=== PATIENT | male | born 1980 | race Caucasian/White ===

== ENCOUNTER 2024-01-28 12:45 | Emergency (ER) | payer OTHER ==
[2024-01-28] MEDS ORDERED: Ibuprofen 800 MG TAB ONE (13:56)
== END 2024-01-28 14:01 ==
LOC: NAV ERS 12:45
DX: S05.11XA Contusion of eyeball and orbital tissues, right eye, initial encounter (principal); Z87.891 Personal history of nicotine dependence; W22.8XXA Striking against or struck by other objects, initial encounter
CPT/HCPCS: 70450; 70486; 72125